=== PATIENT | female | born 1990 | race Two or more races ===

== ENCOUNTER 2018-07-18 18:31 | Emergency (ER) | payer SELFPAY ==
[~2018-07-18] VITALS: Ht 165.1 cm; Wt 86.2 kg
[2018-07-18 18:55] VITALS: BP 140/83
[2018-07-18 19:10] LABS: BILIRUBIN,URINE NEGATIVE (NEG); CLARITY,URINE CLEAR; COLOR,URINE YELLOW; NITRITE,URINE NEGATIVE (NEG); PROTEIN,URINE NEGATIVE (NEG-TRACE)
[2018-07-18 19:31] LABS: BACTERIA,URINE FEW /HPF (0-FEW); RBC,URINE 0 /HPF (0-2); SQUAMOUS EPITHELIAL CELL,UR OCC /LPF; WBC,URINE OCC /HPF (0-4)
[2018-07-18] MEDS ORDERED: IV NORMAL SALINE 1000ML BAG 1,000 ML IV ONE (20:00)
--- NOTE | 2018-07-18 20:41 | PHYS DOC ---
Past Medical History Past Medical History: No Pertinent History (CORDELIA RANGEL APRN) Past Surgical History: No Surgical History (CORDELIA RANGEL APRN) Alcohol Use: None Drug Use: None (CORDELIA RANGEL APRN) Adult General Chief Complaint Chief Complaint: VAGINAL PROBLEM HPI HPI 27-year-old female presents to ER via POV with complaints of low mid abdominal pain and lower back pain which started yesterday evening. Patient states she is approximately 9 weeks . Patient states she is visiting from [place] and arrived one week ago. She reports she did have ultrasound and labs done by her OB in [place]. Patient's LMP 05/19/18. She is with 1 preg. FT stillborn. Patient denies any fever, urinary symptoms, vaginal bleeding or discharge, or CP/palpitations. Pt denies leg swelling/SOA. Pt reports she has had some N/V/D today- denies others in family w/similar illness. She reports they will be in the [place] for 5 additional days she plans to follow-up with her OB when she returns home. (CORDELIA RANGEL APRN) Review of Systems Review of Systems Constitutional: Denies fever or chills [] Eyes: Denies change in visual acuity, redness, or eye pain [] HENT: Denies nasal congestion or sore throat [] Respiratory: Denies cough or shortness of breath [] Cardiovascular: Denies CP/palpitations GI: Denies bloody stools. Reports mid low abd pain into lt side- w/intermittent N/V/D today : Denies dysuria or hematuria. Denies vaginal bleeding/discharge Musculoskeletal: Denies joint pain. Reports lt lower back pain Integument: Denies rash, swelling or skin lesions [] Neurologic: Denies headache, focal weakness or sensory changes. Denies dizziness Endocrine: Denies polyuria or polydipsia [] All other systems were reviewed and found to be within normal limits, except as documented in this note. (CORDELIA RANGEL APRN) Current Medications Current Medications Current Medications Medications (Trade) Dose Ordered Sig/Manjinder Start Time Stop Time Status Last Admin Dose Admin Sodium Chloride 1,000 ml @ 1,000 mls/hr 1X ONCE 07/18/18 20:00 07/18/18 20:59 DC 07/18/18 20:48 1,000 MLS/HR (MUTKATJAAMADDIE PAINTER AND BODY MECHANIC APPRENTICE) Allergies Allergies Allergies Coded Allergies Type Severity Reaction Last Updated Verified Penicillins Allergy Unknown 07/18/18 Yes Sulfa (Sulfonamide Antibiotics) Allergy Unknown 07/18/18 Yes (MADDIE CASTILLO PAINTER AND BODY MECHANIC APPRENTICE) Physical Exam Physical Exam Constitutional: Well developed, well nourished, no acute distress, non-toxic appearance. [] HENT: Normocephalic, atraumatic, oropharynx moist, no oral exudates, nose normal. [] Eyes: Pupils equal, conjunctiva normal, no discharge. [] Neck: Normal range of motion, no tenderness, supple, no stridor. [] Cardiovascular: Heart rate regular rhythm, no murmur [] Lungs & Thorax: Bilateral breath sounds clear to auscultation- resp. equal/nonlabored Abdomen: Bowel sounds normal, soft- no distention/rigidity, tender mid low abd into lt side- no rebound, no masses, no pulsatile masses. [] Skin: Warm, dry, no erythema, no rash. [] Back: No tenderness, tender on palp. lt lower back into side- no CVA tenderness Extremities: No tenderness, no cyanosis, no clubbing, ROM intact, no edema. [] Neurologic: Alert and oriented X 3, normal motor function, normal sensory function, no focal deficits noted. [] Psychologic: Affect normal, judgement normal, mood normal. [] Pelvic Exam: RN Rama present 2139 Abdomen: Tender mid low abd External Genitalia: Normal Skin- no rash /lesions Speculum: Normal vaginal mucosa, sm. amt thin white discharge in vaginal vault- cervical os closed. No blood/clots. Cervix with ecchymosis around os. Bimanual: No adnexal tenderness, No CMT (REFFITT,CORDELIA Chavez PAINTER AND BODY MECHANIC APPRENTICE) Current Patient Data Vital Signs Vital Signs Date Time Temp Pulse Resp B/P (MAP) Pulse Ox O2 Delivery O2 Flow Rate FiO2 07/18/18 18:55 98.6 98 16 140/83 (102) 100 Room Air 98.6 (MADDIE CASTILLO PAINTER AND BODY MECHANIC APPRENTICE) Lab Values Laboratory Tests Test 07/18/18 18:36 07/18/18 18:42 07/18/18 20:45 07/18/18 21:37 Urine Color Yellow Urine Clarity Clear Urine pH 6.0 Urine Specific [place] 1.025 Urine Protein Negative mg/dL (NEG-TRACE) Urine Glucose (UA) Negative mg/dL (NEG) Urine Ketones (Stick) Negative mg/dL (NEG) Urine Blood Negative (NEG) Urine Nitrite Negative (NEG) Urine Bilirubin Negative (NEG) Urine Urobilinogen Dipstick 1.0 mg/dL (0.2 mg/dL) Urine Leukocyte Esterase Small (NEG) Urine RBC 0 /HPF (0-2) Urine WBC Occ /HPF (0-4) Urine Squamous Epithelial Cells Occ /LPF Urine Bacteria Few /HPF (0-FEW) Urine Mucus Slight /LPF POC Urine HCG, Qualitative Hcg positive (Negative) White Blood Count 12.2 x10^3/uL (4.0-11.0) H Red Blood Count 4.86 x10^6/uL (3.50-5.40) Hemoglobin 14.7 g/dL (12.0-15.5) Hematocrit 43.4 % (36.0-47.0) Mean Corpuscular Volume 89 fL (79-100) Mean Corpuscular Hemoglobin 30 pg (25-35) Mean Corpuscular Hemoglobin Concent 34 g/dL (31-37) Red Cell Distribution Width 13.7 % (11.5-14.5) Platelet Count 277 x10^3/uL (140-400) Neutrophils (%) (Auto) 65 % (31-73) Lymphocytes (%) (Auto) 25 % (24-48) Monocytes (%) (Auto) 6 % (0-9) Eosinophils (%) (Auto) 3 % (0-3) Basophils (%) (Auto) 1 % (0-3) Neutrophils # (Auto) 8.0 x10^3uL (1.8-7.7) H Lymphocytes # (Auto) 3.0 x10^3/uL (1.0-4.8) Monocytes # (Auto) 0.8 x10^3/uL (0.0-1.1) Eosinophils # (Auto) 0.3 x10^3/uL (0.0-0.7) Basophils # (Auto) 0.1 x10^3/uL (0.0-0.2) Maternal Serum HCG Beta Subunit 86647 mIU/mL (0-5) H Sodium Level 139 mmol/L (136-145) Potassium Level 3.7 mmol/L (3.5-5.1) Chloride Level 102 mmol/L (98-107) Carbon Dioxide Level 24 mmol/L (21-32) Anion Gap 13 (6-14) Blood Urea Nitrogen 11 mg/dL (7-20) Creatinine 0.6 mg/dL (0.6-1.0) Estimated GFR (Cockcroft-Gault) 119.9 BUN/Creatinine Ratio 18 (6-20) Glucose Level 96 mg/dL (70-99) Calcium Level 9.3 mg/dL (8.5-10.1) Total Bilirubin 0.6 mg/dL (0.2-1.0) Aspartate Amino Transferase (AST) 29 U/L (15-37) Alanine Aminotransferase (ALT) 60 U/L (14-59) H Alkaline Phosphatase 93 U/L (46-116) Total Protein 7.7 g/dL (6.4-8.2) Albumin 4.0 g/dL (3.4-5.0) Albumin/Globulin Ratio 1.1 (1.0-1.7) Lipase 146 U/L (73-393) Chlamydia DNA Probe Negative (Negative) Neisseria gonorrhoeae DNA Probe Negative (Negative) Laboratory Tests 07/18/18 20:45 Laboratory Tests 07/18/18 20:45 Microbiology 07/18/18 Wet Prep - Final, Complete 07/18/18 Urine Culture - Final, Complete 07/18/18 Urine Culture Result 1 (REBECCA) - Final, Complete 07/18/18 Antimicrobic Susceptibility - Final, Complete (MADDIE CASTILLO APRN) EKG EKG [] (CORDELIA RANGEL APRN) Radiology/Procedures Radiology/Procedures PROCEDURE: OB <14 WKS W/TV OB <14 WKS W/TV History: Mid low abdominal pain into the right side, Comparison: None. Findings: Multiple transabdominal sonographic images of pelvis are submitted. Uterus measured 7.3 cm transverse. Pelvic structures are otherwise poorly seen. Transvaginal ultrasound: Multiple transvaginal sonographic images of the pelvis are submitted. Uterus measured about 9.1 x 5.9 cm. There is a focus of somewhat irregular appearing hypoechogenicity in the uterus about 2.4 x 1.1 cm x 1.7 in size, irregular margins and internal echoes present. There is a focus of internal, more defined echogenicity, uncertain if a pole. If this is indeed a pole, there is no demonstrable cardiac activity at this time. Endometrium measures about 2.6 cm in thickness. [place]-rump length measurement of 0.85 cm corresponds with 6 weeks 6 days. Adjusted ultrasound age is 6 weeks 6 days with estimated delivery date of 03/07/2019. LMP age is 13 weeks 0 days with estimated delivery date of 01/23/2019. Right maternal ovary measured 1.7 x 2.7 x 1.7 cm with normal color flow and low resistance vascularity. Left ovary is grossly estimated about 1 x 2.7 x 1.4 cm although otherwise difficult to visualize due to bowel gas in this region, some low resistance vascularity in this region. No significant free fluid is demonstrated. Impression: 1. There is a focus of irregular hypoechogenicity of the uterus which may be an irregular gestational sac with questionable demonstrated pole. There is no demonstrable cardiac activity at this time. Correlation with quantitative beta hCG values and close interval follow-up imaging may be beneficial especially given the irregular appearance of gestational sac. There is no significant free fluid. Electronically signed by: Chelsey Marin MD (07/18/2018 9:10 PM) [facility] DICTATED and SIGNED BY: CHELSEY MARIN MD DATE: 07/18/182109 (CORDELIA RANGEL APRN) Course & Med Decision Making Course & Med Decision Making Pertinent Labs and Imaging studies reviewed. (See chart for details) 0: Following pelvic exam translation phone was used for further communication. Patient reports her and her had had sexual intercourse within the past 24 hours and lower abdominal pain started following that. Discussed bruising around cervix and advised on strict pelvic rest. Test results were discussed. Patient had no vaginal bleeding on exam. Patient initially stated she would be returning to [place] however during this discussion patient says she has a six-month visa and so discussed providing MECHANICAL ENGINEERING SPECIALIST referral information and community clinic resource sheet with discharge paperwork. Advised on signs and symptoms to return to ER for. Patient encouraged to increase fluid intake and advised on use of Tylenol-avoiding other medication unless cleared with her MECHANICAL ENGINEERING SPECIALIST. Education provided on signs and symptoms to return to ER. Discharge instructions were discussed. Patient to follow-up with primary care physician if symptoms persist or with any concerns. (CORDELIA RANGEL APRN) Course & Med Decision Making Positive urine culture-patient's neighbor interpreted for Latvian, information was relayed back and forth, results discussed with patient through the select banker at home, prescription for MicroBid called into [facility] on [address]- Maddie Castillo NP 07/21/2018 (MADDIE CASTILLO APRN) Dragon Disclaimer Dragon Disclaimer This electronic medical record was generated, in whole or in part, using a voice recognition dictation system. (CORDELIA RANGEL APRN) Departure Departure Impression: Primary Impression: Abdominal pain during Additional Impression: Threatened miscarriage in early Disposition: HOME, SELF-CARE Condition: STABLE Referrals: NO PCP (PCP) LYRIC NOONAN Jr, MD Patient Instructions: Abdominal Pain During , Pelvic Rest, Threatened Miscarriage Additional Instructions: Drink plenty of fluids. Will be important to establish an MECHANICAL ENGINEERING SPECIALIST for close monitoring of your . Call as soon as possible and schedule a follow-up appointment for this week. Pelvic rest- nothing inserted into vagina until follow-up with your MECHANICAL ENGINEERING SPECIALIST for re-evaluation. Tylenol as directed on container for pain as needed- avoid other medications until follow-up and MECHANICAL ENGINEERING SPECIALIST approval. Problem Qualifiers CORDELIA RANGEL APRN Jul 18, 2018 20:41 MADDIE CASTILLO APRN Jul 21, 2018 18:12
[2018-07-18 20:56] LABS: BASO # 0.1 x10^3/uL (0.0-0.2); BASO % 1 % (0-3); EOS # 0.3 x10^3/uL (0.0-0.7); EOS % 3 % (0-3); HEMATOCRIT 43.4 % (36.0-47.0); HEMOGLOBIN 14.7 g/dL (12.0-15.5); LYMPH % 25 % (24-48); MEAN CORPUSCULAR HEMOGLOBIN 30 pg (25-35); MEAN CORPUSCULAR HGB CONC 34 g/dL (31-37); MEAN CORPUSCULAR VOLUME 89 fL (79-100); MONO # 0.8 x10^3/uL (0.0-1.1); MONO % 6 % (0-9); NEUT % 65 % (31-73); PLATELET COUNT 277 x10^3/uL (140-400); RED BLOOD COUNT 4.86 x10^6/uL (3.50-5.40); RED CELL DISTRIBUTION WIDTH 13.7 % (11.5-14.5); WHITE BLOOD COUNT 12.2 x10^3/uL (4.0-11.0)
[2018-07-18 21:08] LABS: CALCIUM 9.3 mg/dL (8.5-10.1); CREATININE 0.6 mg/dL (0.6-1.0); GFR 119.9; POTASSIUM 3.7 mmol/L (3.5-5.1)
--- NOTE | 2018-07-18 21:13 | RAD ---
OB <14 WKS W/TV History: Mid low abdominal pain into the right side, Comparison: None. Findings: Multiple transabdominal sonographic images of pelvis are submitted. Uterus measured 7.3 cm transverse. Pelvic structures are otherwise poorly seen. Transvaginal ultrasound: Multiple transvaginal sonographic images of the pelvis are submitted. Uterus measured about 9.1 x 5.9 cm. There is a focus of somewhat irregular appearing hypoechogenicity in the uterus about 2.4 x 1.1 cm x 1.7 in size, irregular margins and internal echoes present. There is a focus of internal, more defined echogenicity, uncertain if a pole. If this is indeed a pole, there is no demonstrable cardiac activity at this time. Endometrium measures about 2.6 cm in thickness. [place]-rump length measurement of 0.85 cm corresponds with 6 weeks 6 days. Adjusted ultrasound age is 6 weeks 6 days with estimated delivery date of 03/07/2019. LMP age is 13 weeks 0 days with estimated delivery date of 01/23/2019. Right maternal ovary measured 1.7 x 2.7 x 1.7 cm with normal color flow and low resistance vascularity. Left ovary is grossly estimated about 1 x 2.7 x 1.4 cm although otherwise difficult to visualize due to bowel gas in this region, some low resistance vascularity in this region. No significant free fluid is demonstrated. Impression: 1. There is a focus of irregular hypoechogenicity of the uterus which may be an irregular gestational sac with questionable demonstrated pole. There is no demonstrable cardiac activity at this time. Correlation with quantitative beta hCG values and close interval follow-up imaging may be beneficial especially given the irregular appearance of gestational sac. There is no significant free fluid. Electronically signed by: Cayetano Palacios MD (07/18/2018 9:10 PM) [facility]
[2018-07-18 21:15] LABS: ALBUMIN/GLOBULIN RATIO 1.1 (1.0-1.7); TOTAL BILIRUBIN 0.6 mg/dL (0.2-1.0); TOTAL PROTEIN 7.7 g/dL (6.4-8.2)
[2018-07-20 16:16] LABS: GC PROBE Negative (Negative)
== END 2018-07-18 22:15 | disposition home or self-care (01) ==
LOC: ER 18:31
DX: O20.0 Threatened abortion (principal); O21.8 Other vomiting complicating pregnancy; M54.5 Low back pain; Z88.0 Allergy status to penicillin; Z88.2 Allergy status to sulfonamides; Z3A.09 9 weeks gestation of pregnancy
CPT/HCPCS: 36415; 76801; 76817; 80053; 81001; 81025; 83690; 84702; 85025; 87086; 87491; 87591; 96360; 99285; J7030; Q0111